=== PATIENT | female | born 1965 | race Caucasian/White ===

== ENCOUNTER 2024-04-08 12:49 | Inpatient (IN) | payer SELFPAY ==
[~2024-04-08] VITALS: Ht 162.6 cm; Wt 81.3 kg
[2024-04-08] VITALS (18 sets, daily range): BP systolic 80–117; BP diastolic 60–75; PULSE 99–106; RESP 15–18; TEMP 36.16956–36.1956; O2SAT 91–100
[2024-04-08] MEDS ORDERED: ACETAMINOPHEN 650MG SUPP PR PRN (13:15)
[2024-04-08] MEDS ORDERED: AMIODARONE HCL 900 MG in DEXT 5% WATER 500 ML IV ONE (13:15)
[2024-04-08] MEDS ORDERED: ACETAMINOPHEN 650MG/20.3ML UDC NG PRN (13:15)
[2024-04-08] MEDS ORDERED: PROPOFOL 10MG/ML 100ML 100 ML IV PRN (13:15)
[2024-04-08] MEDS: AMIODARONE 150MG/100ML D5W 100 ML IV NR (13:24)
[2024-04-08] MEDS: SODIUM CHLORIDE 0.9% (SEPSIS BOLUS) IV ONE (13:24)
[2024-04-08] MEDS: ASPIRIN 81MG TABLET PO ONE (13:25)
[2024-04-08] MEDS: NOREPINEPHRINE 8MG/250ML PMX 250 ML IV PRN (13:25)
[2024-04-08] MEDS ORDERED: EPINEPHRINE 10 MG in SODIUM CHLORIDE 0.9% 240 ML IV STA (13:35)
[2024-04-08] MEDS: AMIODARONE HCL 900 MG in DEXT 5% WATER 500 ML IV SCH (14:23)
[2024-04-08] MEDS: CALCIUM CHLORIDE 1GM/10ML SYR IV ONE (14:30)
[2024-04-08] MEDS: EPINEPHRINE 10 MG in DEXT 5% WATER 240 ML IV STA (14:31)
[2024-04-08 15:17] LABS: BASOPHILS % 0.4 % (0.0-2.0); DIFFERENTIAL COMMENT 0; EOSINOPHILS % 1.1 % (0.0-5.0); HEMATOCRIT. 40.3 % (36.0-48.0); HEMOGLOBIN. 11.7 g/dL (12.0-16.0); LYMPHOCYTES % 36.3 % (20.0-50.0); MEAN CORPUSCULAR HEMOGLOBIN 22.4 pg (28.0-32.0); MEAN CORPUSCULAR HGB CONC 29.1 g/dL (31.0-37.0); MEAN CORPUSCULAR VOLUME 76.8 fL (81.0-99.0); MEAN PLATELET VOLUME 9.9 fl (7.4-10.4); MONOCYTES % 1.1 % (2.0-8.0); NEUTROPHILS % 61.1 % (40.0-76.0); PLATELET 287 x1000/uL (130-400); RED BLOOD CELL COUNT 5.24 mill/uL (4.2-5.4); RED CELL DISTRIBUTION WIDTH 15.4 % (11.6-14.6); WHITE BLOOD COUNT 18.2 x1000/uL (4.5-11.0)
[2024-04-08 15:29] LABS: CHLORIDE 100 mEq/L (98-107); POTASSIUM 5.5 mEq/L (3.5-5.1); SODIUM 131 mEq/L (136-145)
[2024-04-08 15:30] LABS: CALCIUM 12.6 mg/dL (8.7-10.4); CARBON DIOXIDE 14 mEq/L (21-32)
[2024-04-08 15:30] LABS: CLARITY URINE CLOUDY (CLEAR); COLOR URINE YELLOW (YELLOW); GLUCOSE URINE 3+ (NEGATIVE); KETONES URINE NEGATIVE (NEGATIVE); LEUKOCYTE ESTERASE URINE NEGATIVE (NEGATIVE); NITRITE URINE NEGATIVE (NEGATIVE); OCCULT BLOOD URINE 2+ (NEGATIVE); PH URINE 5.5 (4.5-8.0); PROTEIN URINE 3+ (NEGATIVE); SPECIFIC GRAVITY URINE 1.019 (1.005-1.030); UROBILINOGEN URINE 0.2 E.U./dL (0.2-1.0)
[2024-04-08 15:35] LABS: CREATININE 1.7 mg/dL (0.6-1.0); UREA NITROGEN BLOOD 43 mg/dL (9-23)
[2024-04-08 15:45] LABS: GLUCOSE 817 mg/dL (70-105)
[2024-04-08 15:46] LABS: PHOSPHORUS 10.9 mg/dL (2.5-4.9); TROPONIN I HIGH SENSITIVITY 901 ng/L (3.0-34)
[2024-04-08] MEDS ORDERED: CLONIDINE 0.1MG TABLET PO PRN (16:00)
[2024-04-08] MEDS ORDERED: ONDANSETRON HCL 4MG/2ML INJ IV PRN (16:00)
[2024-04-08] MEDS ORDERED: IPRATROPIUM/ALBUTEROL 0.5-3(2.5)MG/3ML NEB HHN PRN (16:00)
[2024-04-08] MEDS ORDERED: ACETAMINOPHEN 325MG TABLET PO PRN ×2 (16:00)
[2024-04-08 16:05] LABS: BACTERIA URINE TRACE; RBC URINE 15-25 /hpf (0-2); SQUAMOUS EPITHELIAL CELL URINE FEW /lpf (RARE/1+)
[2024-04-08] MEDS: SODIUM CHLORIDE 0.9% 1,000 ML IV SCH ×2 (16:40→17:31)
[2024-04-08 16:47] LABS: INR 1.1; PARTIAL THROMBOPLASTIN TIME 31.1 sec (23.4-31.0); PROTHROMBIN TIME 11.9 sec (9.6-11.0)
[2024-04-08 16:48] LABS: POTASSIUM 5.2 mEq/L (3.5-5.1)
[2024-04-08 16:54] LABS: TRIGLYCERIDE 203 mg/dL (0-150)
[2024-04-08 16:55] LABS: ALANINE AMINOTRANSFERASE 421 IU/L (10-49); LDL CHOLESTEROL 167 mg/dL (5-100)
[2024-04-08 16:56] LABS: ALBUMIN 3.2 g/dL (3.2-4.8); ASPARTATE AMINOTRANSFERASE 862 IU/L (<34); BILIRUBIN DIRECT 0.2 mg/dL (<=3.0); BILIRUBIN TOTAL 0.6 mg/dL (0.1-1.0); CHOLESTEROL 249 mg/dL (<200); HDL CHOLESTEROL 39 mg/dL (>65); PROTEIN TOTAL 5.8 g/dL (6.0-8.3); T4 FREE 1.37 ng/dL (0.89-1.76); THYROID STIMULATING HORMONE 1.08 uIU/mL (0.55-4.78)
[2024-04-08] MEDS ORDERED: ENOXAPARIN 80MG/0.8ML SYR SUBCUT SCH (17:00)
[2024-04-08] MEDS ORDERED: ENOXAPARIN 80MG/0.8ML SYR SUBCUT NR (17:00)
[2024-04-08] MEDS ORDERED: KCL 20MEQ/100ML PREMIX 100 ML IV PRN (17:00)
[2024-04-08] MEDS ORDERED: POTASSIUM CHLORIDE 40 MEQ in SODIUM CHLORIDE 0.9% 230 ML IV PRN (17:00)
[2024-04-08] MEDS: BLOOD SUGAR DIAGNOSTIC STRIP TEST SCH (17:00)
[2024-04-08] MEDS ORDERED: BLOOD SUGAR DIAGNOSTIC STRIP TEST PRN (17:00)
[2024-04-08] MEDS ORDERED: SODIUM PHOSPHATE 15 MMOL in SODIUM CHLORIDE 0.9% 245 ML IV PRN (17:00)
[2024-04-08] MEDS ORDERED: DEXTROSE 50% WATER 50ML SYRINGE IV PRN (17:00)
[2024-04-08 17:03] LABS: TROPONIN I HIGH SENSITIVITY 1742 ng/L (3.0-34)
[2024-04-08 17:06] LABS: PHOSPHORUS 10.5 mg/dL (2.5-4.9)
[2024-04-08 17:07] LABS: TROPONIN I HIGH SENSITIVITY 1731 ng/L (3.0-34)
[2024-04-08 17:10] LABS: LACTIC ACID 10.5 mmol/L (0.4-2.0)
[2024-04-08] MEDS: INSULIN REGULAR 100U/100ML PMX 100 ML IV SCH (17:30)
[2024-04-08] MEDS: PIPERACILLIN/TAZOBACTAM 3.375 G in DEXTROSE 5% WATER 50 ML IV SCH (17:33)
[2024-04-08 18:16] LABS: BG BASE EXCESS -16.9 mmol/L (-2.0-3.0); BG CARBOXYHEMOGLOBIN 0.4 % (0.5-1.5); BG DEOXYHEMOGLOBIN 6.3 % (0.0-5.0); BG FRACTION INSPIRED OXYGEN 60; BG HCO3 ACT 13.9 mmol/L (21.0-28.0); BG METHEMOGLOBIN 0.3 % (0.5-1.5); BG OXYGEN SATURATION 93.7 % (94.0-98.0); BG PH 7.028 (7.350-7.450); BG PO2 85.5 mmHg (83.0-108.0); BG SAMPLE SITE RIGHT RADIAL; BG TOTAL HEMOGLOBIN 13.1 g/dL (12.0-16.0); BG VENT MODE VENT - AC
[2024-04-08] MEDS: VANCOMYCIN 1.25GM PMX (XELLIA) 250 ML IV NR (18:40)
[2024-04-08 20:20] LABS: POTASSIUM 3.8 mEq/L (3.5-5.1)
[2024-04-08 20:22] LABS: CALCIUM 9.2 mg/dL (8.7-10.4)
[2024-04-08 20:26] LABS: CREATININE 1.7 mg/dL (0.6-1.0)
[2024-04-08] MEDS: ATORVASTATIN CALCIUM 40MG TABLET PO SCH (22:01)
[2024-04-09] VITALS (108 sets, daily range): BP systolic 55–190; BP diastolic 13–119; PULSE 68–112; RESP 10–34; TEMP 36.114–36.22512; O2SAT 84–100
[2024-04-09 02:54] LABS: BG BASE EXCESS -15.5 mmol/L (-2.0-3.0); BG CARBOXYHEMOGLOBIN 0.8 % (0.5-1.5); BG DEOXYHEMOGLOBIN 10.4 % (0.0-5.0); BG FRACTION INSPIRED OXYGEN 60; BG HCO3 ACT 15.3 mmol/L (21.0-28.0); BG METHEMOGLOBIN 0.2 % (0.5-1.5); BG OXYGEN SATURATION 89.5 % (94.0-98.0); BG OXYHEMOGLOBIN 88.6 % (94.0-98.0); BG PCO2 59.2 mmHg (32.0-45.0); BG PH 7.031 (7.350-7.450); BG PO2 64.1 mmHg (83.0-108.0); BG SAMPLE SITE LEFT RADIAL; BG TOTAL HEMOGLOBIN 11.8 g/dL (12.0-16.0); BG VENT MODE VENT - P/C
[2024-04-09] MEDS: PIPERACILLIN/TAZOBACTAM 3.375 G in DEXTROSE 5% WATER 50 ML IV SCH (05:14)
[2024-04-09 07:16] LABS: BASOPHILS % 0.3 % (0.0-2.0); DIFFERENTIAL COMMENT 0; EOSINOPHILS % 1.2 % (0.0-5.0); HEMATOCRIT. 34.9 % (36.0-48.0); HEMOGLOBIN. 10.9 g/dL (12.0-16.0); LYMPHOCYTES % 11.8 % (20.0-50.0); MEAN CORPUSCULAR HEMOGLOBIN 22.8 pg (28.0-32.0); MEAN CORPUSCULAR HGB CONC 31.2 g/dL (31.0-37.0); MEAN CORPUSCULAR VOLUME 73.2 fL (81.0-99.0); MEAN PLATELET VOLUME 8.2 fl (7.4-10.4); MONOCYTES % 3.4 % (2.0-8.0); NEUTROPHILS % 83.3 % (40.0-76.0); PLATELET 208 x1000/uL (130-400); RED BLOOD CELL COUNT 4.77 mill/uL (4.2-5.4); WHITE BLOOD COUNT 7.8 x1000/uL (4.5-11.0)
[2024-04-09 07:23] LABS: POTASSIUM 3.6 mEq/L (3.5-5.1)
[2024-04-09 07:24] LABS: CALCIUM 9.3 mg/dL (8.7-10.4)
[2024-04-09 07:28] LABS: CREATININE 1.8 mg/dL (0.6-1.0)
[2024-04-09] MEDS: NOREPINEPHRINE 8MG/250ML PMX 250 ML IV PRN (07:40)
[2024-04-09] MEDS: DEXT 5%/0.9% NACL 1,000 ML IV SCH (08:51)
[2024-04-09 09:35] LABS: BG BASE EXCESS -15.2 mmol/L (-2.0-3.0); BG CARBOXYHEMOGLOBIN 0.6 % (0.5-1.5); BG DEOXYHEMOGLOBIN 3.3 % (0.0-5.0); BG FRACTION INSPIRED OXYGEN 100; BG HCO3 ACT 15.4 mmol/L (21.0-28.0); BG OXYGEN SATURATION 96.7 % (94.0-98.0); BG OXYHEMOGLOBIN 96.1 % (94.0-98.0); BG PCO2 56.8 mmHg (32.0-45.0); BG PO2 90.5 mmHg (83.0-108.0); BG SAMPLE SITE LEFT RADIAL; BG TOTAL HEMOGLOBIN 12.5 g/dL (12.0-16.0); BG VENT MODE VENT - PRVC
[2024-04-09] MEDS: ASPIRIN 81MG TABLET PO SCH (09:57)
[2024-04-09] MEDS: PANTOPRAZOLE SODIUM 40 MG/VIAL IV SCH (09:58)
[2024-04-09] MEDS ORDERED: AMIODARONE HCL 900 MG in DEXT 5% WATER 482 ML IV SCH (11:00)
[2024-04-09] MEDS ORDERED: AMIODARONE HCL 450 MG in DEXT 5% WATER 241 ML IV SCH (11:00)
[2024-04-09] MEDS: NOREPINEPHRINE 32 MG in DEXT 5% WATER 218 ML IV PRN (12:20)
[2024-04-09 12:39] LABS: BETA HYDROXYBUTYRATE 0.1 mMol/L (0.0-0.3)
[2024-04-09 13:17] LABS: CALCIUM 8.9 mg/dL (8.7-10.4)
[2024-04-09 13:22] LABS: CREATININE 1.9 mg/dL (0.6-1.0)
[2024-04-09 13:50] LABS: POTASSIUM 3.4 mEq/L (3.5-5.1)
[2024-04-09 13:58] LABS: BG BASE EXCESS -16.5 mmol/L (-2.0-3.0); BG CARBOXYHEMOGLOBIN 0.6 % (0.5-1.5); BG DEOXYHEMOGLOBIN 0.6 % (0.0-5.0); BG FRACTION INSPIRED OXYGEN 100; BG HCO3 ACT 13.3 mmol/L (21.0-28.0); BG METHEMOGLOBIN 0.3 % (0.5-1.5); BG OXYGEN SATURATION 99.4 % (94.0-98.0); BG OXYHEMOGLOBIN 98.5 % (94.0-98.0); BG PCO2 48.2 mmHg (32.0-45.0); BG PO2 251.5 mmHg (83.0-108.0); BG SAMPLE SITE LEFT RADIAL; BG TOTAL HEMOGLOBIN 11.6 g/dL (12.0-16.0); BG VENT MODE VENT - PRVC
[2024-04-09 14:25] LABS: LACTIC ACID 5.8 mmol/L (0.4-2.0)
[2024-04-09] MEDS: AMIODARONE HCL 450 MG in DEXT 5% WATER 241 ML IV SCH (15:18)
[2024-04-09] MEDS: KCL 20MEQ/100ML PREMIX 100 ML IV SCH (16:42)
[2024-04-09] MEDS ORDERED: DEXTROSE 50% WATER 50ML SYRINGE IV PRN ×3 (17:15→19:00)
[2024-04-09] MEDS: VANCOMYCIN 750MG/150ML (BAXTER) IV SCH (17:33)
[2024-04-09] MEDS: ENOXAPARIN 30MG/0.3ML SYR SUBCUT SCH (17:33)
[2024-04-09] MEDS: SODIUM BICARBONATE 100 MEQ in SODIUM CHLORIDE 0.45% 900 ML IV SCH (17:34)
[2024-04-09] MEDS ORDERED: BLOOD SUGAR DIAGNOSTIC STRIP TEST SCH ×3 (17:50→18:15)
[2024-04-09] MEDS: BLOOD SUGAR DIAGNOSTIC STRIP TEST SCH ×2 (18:00→18:30)
[2024-04-09] MEDS ORDERED: INSULIN LISPRO 100 UNITS/ML SUBCUT SCH ×2 (18:20)
[2024-04-09 19:00] LABS: CALCIUM 8.9 mg/dL (8.7-10.4); CHLORIDE 116 mEq/L (98-107); POTASSIUM 3.5 mEq/L (3.5-5.1); SODIUM 146 mEq/L (136-145)
[2024-04-09 19:01] LABS: CARBON DIOXIDE 14 mEq/L (21-32)
[2024-04-09 19:06] LABS: CREATININE 1.9 mg/dL (0.6-1.0); GLUCOSE 310 mg/dL (70-105); UREA NITROGEN BLOOD 42 mg/dL (9-23)
[2024-04-09] MEDS: INSULIN LISPRO 100 UNITS/ML SUBCUT SCH (19:06)
[2024-04-09] MEDS: EPINEPHRINE 10 MG in SODIUM CHLORIDE 0.9% 240 ML IV PRN (20:49)
[2024-04-09] MEDS: PIPERACILLIN/TAZO 3.375G/50ML 50 ML IV SCH (21:35)
[2024-04-10] VITALS (99 sets, daily range): BP systolic 53–132; BP diastolic 25–82; PULSE 0–177; RESP 0–34; TEMP 96.2–100.9; O2SAT 91–100
[2024-04-10 02:43] LABS: POTASSIUM 4.6 mEq/L (3.5-5.1)
[2024-04-10 02:45] LABS: CALCIUM 8.3 mg/dL (8.7-10.4)
[2024-04-10 02:54] LABS: CREATININE 2.4 mg/dL (0.6-1.0)
[2024-04-10 06:38] LABS: POTASSIUM 4.9 mEq/L (3.5-5.1)
[2024-04-10 06:40] LABS: CALCIUM 8.3 mg/dL (8.7-10.4)
[2024-04-10 06:45] LABS: CREATININE 2.4 mg/dL (0.6-1.0)
[2024-04-10 07:08] LABS: PHOSPHORUS 4.9 mg/dL (2.5-4.9)
[2024-04-10 09:35] LABS: BG BASE EXCESS -11.2 mmol/L (-2.0-3.0); BG FRACTION INSPIRED OXYGEN 70; BG HCO3 ACT 15.8 mmol/L (21.0-28.0); BG PCO2 39.6 mmHg (32.0-45.0); BG PO2 107.2 mmHg (83.0-108.0); BG SAMPLE SITE LEFT RADIAL; BG VENT MODE VENT - PRVC
[2024-04-10 10:51] LABS: POTASSIUM 4.8 mEq/L (3.5-5.1)
[2024-04-10 10:52] LABS: CALCIUM 7.9 mg/dL (8.7-10.4)
[2024-04-10 10:57] LABS: CREATININE 2.6 mg/dL (0.6-1.0)
[2024-04-10] MEDS: MAGNESIUM 2 G PREMIX 50 ML IV PRN (12:29)
[2024-04-10] MEDS: VASOPRESSIN 20 UNIT in SODIUM CHLORIDE 0.9% 99 ML IV PRN (18:22)
[2024-04-10 19:00] LABS: BASOPHILS % 0.7 % (0.0-2.0); EOSINOPHILS % 3.7 % (0.0-5.0); HEMATOCRIT. 27.7 % (36.0-48.0); LYMPHOCYTES % 22.9 % (20.0-50.0); MEAN CORPUSCULAR HEMOGLOBIN 22.6 pg (28.0-32.0); MEAN CORPUSCULAR HGB CONC 32.5 g/dL (31.0-37.0); MEAN CORPUSCULAR VOLUME 69.6 fL (81.0-99.0); MEAN PLATELET VOLUME 9.3 fl (7.4-10.4); MONOCYTES % 4.8 % (2.0-8.0); NEUTROPHILS % 67.9 % (40.0-76.0); PLATELET 63 x1000/uL (130-400); RED BLOOD CELL COUNT 3.98 mill/uL (4.2-5.4); WHITE BLOOD COUNT 10.6 x1000/uL (4.5-11.0)
[2024-04-10] MEDS ORDERED: AMIODARONE HCL IV SCH ×2 (19:00)
[2024-04-10] MEDS ORDERED: AMIODARONE 360MG/200ML 200 ML IV SCH (19:00)
[2024-04-10] MEDS ORDERED: DEXT 5% IV SCH ×2 (19:00)
[2024-04-10] MEDS ORDERED: WATER IV SCH ×2 (19:00)
[2024-04-10 19:04] LABS: CARBON DIOXIDE 17 mEq/L (21-32); CHLORIDE 109 mEq/L (98-107); POTASSIUM 5.8 mEq/L (3.5-5.1); SODIUM 138 mEq/L (136-145)
[2024-04-10 19:05] LABS: CALCIUM 7.8 mg/dL (8.7-10.4)
[2024-04-10 19:10] LABS: CREATININE 2.9 mg/dL (0.6-1.0); GLUCOSE 154 mg/dL (70-105); UREA NITROGEN BLOOD 49 mg/dL (9-23)
[2024-04-10 19:12] LABS: PHOSPHORUS 5.9 mg/dL (2.5-4.9)
[2024-04-10] MEDS ORDERED: AMIODARONE HCL 900 MG in DEXT 5% WATER 482 ML IV SCH (19:15)
[2024-04-10] MEDS: PHENYLEPHRINE 100 MG in DEXT 5% WATER 240 ML IV PRN (19:52)
[2024-04-10 19:55] LABS: DIFFERENTIAL COMMENT 1
[2024-04-10] MEDS: AMIODARONE 150MG/100ML D5W 100 ML IV NR (19:55)
[2024-04-10] MEDS: LORAZEPAM 2MG/ML INJ IV NR (20:29)
[2024-04-10] MEDS: MORPHINE SULFATE 4 MG/ML INJ (FOR IV/IM USE) IV NR (20:29)
[2024-04-10] MEDS ORDERED: PIPERACILLIN/TAZO 3.375G/50ML 50 ML IV SCH (21:00)
[2024-04-10] MEDS ORDERED: AMIODARONE 200MG TABLET PO SCH (21:00)
== END 2024-04-10 23:50 | DRG 720 ==
LOC: ER 13:00 → EDBEDREQ 13:12 → EDBEDREQTM 15:37 → EDBEDREQ 15:37 → CVICU 21:24
PROVIDERS: ADMIT Internal Medicine; ATTEND Internal Medicine
PROC: 5A12012 Performance of Cardiac Output, Single, Manual (ICD-10-PCS; principal; 2024-04-08)
PROC: 5A1945Z Respiratory Ventilation, 24-96 Consecutive Hours (ICD-10-PCS; 2024-04-08)
PROC: 0BH17EZ Insertion of Endotracheal Airway into Trachea, Via Natural or Artificial Opening (ICD-10-PCS; 2024-04-08)
PROC: 4B02XTZ Measurement of Cardiac Defibrillator, External Approach (ICD-10-PCS; 2024-04-08)
PROC: 06HY33Z Insertion of Infusion Device into Lower Vein, Percutaneous Approach (ICD-10-PCS; 2024-04-08)
PROC: B54BZZA Ultrasonography of Right Lower Extremity Veins, Guidance (ICD-10-PCS; 2024-04-08)
DX: A41.9 Sepsis, unspecified organism (principal); I46.9 Cardiac arrest, cause unspecified; G93.6 Cerebral edema; J80 Acute respiratory distress syndrome; J69.0 Pneumonitis due to inhalation of food and vomit; G92.8 Other toxic encephalopathy; K72.00 Acute and subacute hepatic failure without coma; E11.10 Type 2 diabetes mellitus with ketoacidosis without coma; R57.0 Cardiogenic shock; J18.9 Pneumonia, unspecified organism; R65.21 Severe sepsis with septic shock; I21.A1 Myocardial infarction type 2; E83.39 Other disorders of phosphorus metabolism; I49.01 Ventricular fibrillation; E87.1 Hypo-osmolality and hyponatremia; E87.5 Hyperkalemia; E83.52 Hypercalcemia; N17.9 Acute kidney failure, unspecified; I13.0 Hypertensive heart and chronic kidney disease with heart failure and stage 1 through stage 4 chronic kidney disease, or unspecified chronic kidney disease; E11.22 Type 2 diabetes mellitus with diabetic chronic kidney disease; K21.9 Gastro-esophageal reflux disease without esophagitis; N18.9 Chronic kidney disease, unspecified; G93.1 Anoxic brain damage, not elsewhere classified; I50.9 Heart failure, unspecified; E83.41 Hypermagnesemia; E78.00 Pure hypercholesterolemia, unspecified; E87.4 Mixed disorder of acid-base balance; I45.81 Long QT syndrome; I25.10 Atherosclerotic heart disease of native coronary artery without angina pectoris; I42.9 Cardiomyopathy, unspecified; I45.9 Conduction disorder, unspecified; I25.2 Old myocardial infarction; Z79.4 Long term (current) use of insulin; Z79.82 Long term (current) use of aspirin; Z79.899 Other long term (current) drug therapy
CPT/HCPCS: 36415; 36600; 71045; 71275; 78610; 80048; 80061; 80076; 80202; 81003; 82010; 82330; 82375; 82805; 82962; 83036; 83605; 83735; 83880; 83930; 83970; 84100; 84132; 84145; 84439; 84443; 84484; 85025; 86850; 86900; 87070; 93005; 93306; 93970; 94002; 94003; 94070; 94660; 94664; 99291; 99292; A9512; J0282; J1650; J1815; J2060; J2270; J2470; J2543; J2704; J3370; J3475; J3480; J3490; J7030; J7050; J7060